=== PATIENT | female | born 1955 | race Caucasian/White ===

== ENCOUNTER 2016-12-21 17:40 | Outpatient (CLI) | payer OTHER ==
[2016-12-21 17:55] VITALS: BP 123/74
[2016-12-21] MEDS ORDERED: NS FLUSH 10 ML PRN IV (18:20)
[2016-12-21] MEDS ORDERED: NS FLUSH 3 ML PRN IV (18:20)
== END 2016-12-21 19:05 ==
LOC: OB 17:40 → EUOP 17:40
PROVIDERS: ATTEND Physician Assistant
DX: R53.81 Other malaise (principal); J06.9 Acute upper respiratory infection, unspecified
CPT/HCPCS: 96360; J7030

== ENCOUNTER → 2016-12-21 | Outpatient (CLI) | payer OTHER ==
[2016-12-21 16:19] VITALS: BP 151/84
== END ==
LOC: MHUC 15:59
PROVIDERS: ATTEND Physician Assistant
DX: J09.X2 Influenza due to identified novel influenza A virus with other respiratory manifestations (principal); R53.81 Other malaise
CPT/HCPCS: 99213

== ENCOUNTER → 2016-12-21 | Outpatient (CLI) | payer OTHER ==
[2016-12-21 16:53] LABS: INFLUENZA VIRUS TYPE A ANTIBOD Positive (NEGATIVE); INFLUENZA VIRUS TYPE B ANTIBOD Negative (NEGATIVE)
== END ==
LOC: LAB 16:21
PROVIDERS: ATTEND Physician Assistant
DX: R53.81 Other malaise (principal)
CPT/HCPCS: 87502